=== PATIENT | male | born 1985 | race Caucasian/White ===

== ENCOUNTER 2019-12-23 06:46 | Outpatient (NON) | payer BC, SELFPAY ==
[2019-12-23 18:59] LABS: SARS-CoV-2 RNA PCR Negative
== END 2019-12-23 06:47 ==
PROVIDERS: PCP Internal Medicine; Visit Provider Internal Medicine
DX: Z20.828 Contact with and (suspected) exposure to other viral communicable diseases (principal); R68.89 Other general symptoms and signs
CPT/HCPCS: 87635; C9803; U0003

== ENCOUNTER 2024-03-09 08:58 | Emergency (ER) | payer BC, SELFPAY ==
[2024-03-09 09:26] VITALS: BP 145/95; PULSE 81; RESP 16; TEMP 36.6; O2SAT 100
--- NOTE | 2024-03-09 09:45 | ED.URI ---
HPI - URI/Sore Throat General Chief Complaint: Upper Respiratory Infection Stated Complaint: Sore Throat Time Seen by Provider: 03/09/24 09:46 Source: patient Mode of arrival: ambulatory Limitations: no limitations History of Present Illness HPI Narrative: Eduar is a 38-year-old male patient presenting to the clinic today with complaints of sore throat x5 days. He reports he has had low-grade fever. No nasal drainage or cough. Denies any known exposure to strep. Denies any chills or body aches. MD elicited complaint: sore throat Related Data Allergies Allergy/AdvReac Type Severity Reaction Status Date / Time No Known Allergies Allergy Verified 03/09/24 09:23 Review of Systems Review of Systems: Pertinent positives per HPI. Patient denies any fever, chills, rash, headache, visual changes, dizziness, cough, shortness of breath, chest pain, palpitations, nausea, vomiting, diarrhea, constipation, abdominal pain, or any urinary issues. PMFSH Family History Family History Sibling Patient's sister is in good health Mother Patient's mother is in good health Father Diabetes mellitus Heart disease Kidney disease Social History Social History Smoking status: Never smoker Second hand tobacco smoke exposure: No Alcohol intake: former Substance use: never Substance use type: does not use Lack of Transportation: No Lack of Food: Never True Current Housing: I Have Housing Concerned About Future Housing: No Difficulty Paying Gas/Electric Bills: No Difficulty Paying for Meds: No Currently Unemployed: No Education: Master's Degree or Higher Difficulty w/ Childcare or Family Care: No Comments At the time of my signature, I reviewed and agree with the nursing past medical, surgical, social, and family history. There is no relevant family history pertinent to the patient complaint. Exam Narrative: General: Well-developed, well nourished, in no apparent distress Head: Normocephalic, atraumatic Eyes: Pupils equally round and reactive to light bilaterally, EOM intact, sclera and conjunctive clear, no discharge, lids normal Ears: TMs intact and clear, ear canals clear, no drainage, grossly hearing normal. Nose: Nares patent, no discharge, no inflammation, no sinus tenderness. Mouth: Oral pharynx red without lesions or masses, good dentition, MMM. Neck: Supple, trachea midline, no enlargement of anterior or posterior cervical nodes, no thyroid masses or goiter palpable. Cardio: Regular rate and rhythm, s1 and s2 normal, no murmur appreciated. Resp: Clear to auscultation bilaterally, no rhonchi, rales, wheezing or rubs Course Course Emergency Course: Portions of this record may have been created with voice recognition software. Level of Care: Express Care Visit Vital Signs Vital signs: Vital Signs Temperature 36.6 C 03/09/24 09:26 Pulse Rate 81 03/09/24 09:26 Respiratory Rate 16 03/09/24 09:26 Blood Pressure 145/95 H 03/09/24 09:26 Pulse Oximetry 100 03/09/24 09:26 Temperature 36.6 C 03/09/24 09:26 Pulse Rate 81 03/09/24 09:26 Respiratory Rate 16 03/09/24 09:26 Blood Pressure 145/95 H 03/09/24 09:26 Pulse Oximetry 100 03/09/24 09:26 Vital signs reviewed MDM - URI/Sore Throat MDM Narrative Medical decision making narrative: At the time of visit patient is resting comfortably on the exam table. Patient appears to be nontoxic. Labs: Strep test was performed and negative in the clinic today. We will send strep for culture. Plan: I suspect patient has viral pharyngitis. Supportive measures were discussed with the patient and they voiced understanding discharge instructions and agrees to treatment plan. Return precautions reviewed Differential Diagnosis Differential diagnosis: Likely upper respiratory infection, otitis media, sinusitis, viral infection, bronchitis, influenza, pharyngitis and other (COVID) Discharge Plan Discharge Clinical Impression: Pharyngitis Qualifiers: Pharyngitis/tonsillitis etiology: unspecified etiology Qualified Code(s): J02.9 - Acute pharyngitis, unspecified Patient Disposition: Home, Self-Care Condition: Stable Instructions: Antibiotic Form, Pharyngitis (ED) Additional Instructions: Strep test was negative in the clinic today. We will send strep for culture if this comes back positive we will contact you in place you on antibiotics at that time. Increase fluids and stay well hydrated Tylenol/motrin for pain/fever Flonase and OTC antihistamines as directed Vicks vapor rub to open sinuses Sinus rinses for congestion Cepacol spray, cough drops, throat lozenges, warm tea with honey/lemon, gargle salt water to soothe throat BRAT diet for diarrhea Clear liquids x 24 hours then advance as tolerated for nausea/vomiting Go to the ED if you develop a worsening in your condition- high fever not controlled by Tylenol or Motrin, dehydration, weakness, lethargy, shortness of breath, or chest pain. Follow up with your PCP in 3-5 days if symptoms persist. Patient Language: Turkish Prescriptions: No Action levothyroxine 200 mcg tablet 200 mcg PO DAILY Qty: 90 1RF Follow-up/Referrals: Yobany Hyman MD [Primary Care Provider] - Time of Disposition: 09:46 Quality NIHSS Nursing Documentation ED NIHSS nursing documentation: reviewed/agree
[2024-03-09 09:55] LABS: EDSTREPNEGPOS1 Negative (Negative)
== END 2024-03-09 09:55 | disposition home or self-care (01) ==
PROVIDERS: Emergency Provider Nurse Practitioner Family; PCP Family Medicine
DX: J02.9 Acute pharyngitis, unspecified (principal)
CPT/HCPCS: 87081; 87880; 99213; G0463

== ENCOUNTER 2024-09-05 16:20 | Emergency (ER) | payer BC, SELFPAY ==
--- NOTE | ~2024-09-05 | XR_ITS ---
CORRECTED REPORT corrected visit [place] to [id number] [place] [id number] [facility] [place] This report was recreated on 09/19/2024. Original report was CHEST RADIOGRAPH, PA AND LATERAL CLINICAL HISTORY: left arm pain . COMPARISON: 03/18/2011 TECHNIQUE: PA and lateral views of the chest. FINDINGS The cardiomediastinal silhouette is unremarkable. The lungs are clear. Visualized osseous structures and soft tissues are unremarkable. IMPRESSION: No focal infiltrate or effusion. Reviewed, dictated and finalized at location A.
[2024-09-05 16:32] VITALS: BP 189/83; PULSE 76; RESP 18; TEMP 36.6; O2SAT 99
--- NOTE | 2024-09-05 16:57 | ECG_ITS ---
Measurements Intervals [place] Rate: 49 P: 66 W[place]: 183 QRS: 56 QRSD: 92 T: 46 QT: 400 QTc: 363 Interpretive Statements SINUS BRADYCARDIA ST ELEVATION IN DIFFUSE LEADS, PROBABLY EARLY REPOLARIZATION ABNORMAL ECG No previous ECG available for comparison Dictated By: Gage Cross DO 09/05/241921 Electronically Signed On 09-05-2024 19:22:52 CDT by Gage Cross D.O.
[2024-09-05 17:13] LABS: Basophils Absolute Auto 0.1 K/mm3 (0.0-0.1); Basophils Percent Auto 0.9 % (0.2-1.2); Eosinophils Absolute Auto 0.3 K/mm3 (0-0.3); Eosinophils Percent Auto 4.3 % (0-4.4); Hematocrit 42.3 % (42.0-52.0); Hemoglobin 14.4 g/dL (14.0-18.0); Immature Granulocyte Absolute 0.01 K/mm3 (0.00-0.031); Immature Granulocyte Percent A 0.2 % (0-0.5); Lymphocytes Absolute Auto 2.29 K/mm3 (0.9-3.2); Lymphocytes Percent Auto 39.1 % (18.3-44.2); Mean Corpuscular Hemoglobin 31.1 pg (26-34); Mean Corpuscular Volume 91.4 fl (80-100); Mean Platelet Volume 10.2 fl (7.4-10.4); Monocytes Absolute Auto 0.5 K/mm3 (0.1-0.6); Monocytes Percent Auto 8.7 % (2.6-8.5); Neutrophils Absolute Auto 2.8 K/mm3 (1.3-6.7); Neutrophils Percent Auto 46.8 % (45.5-73.1); Platelet Count Result 222 k/mm3 (150-375); Red Blood Count 4.63 M/mm3 (4.6-6.20); Red Cell Distribution Width 11.9 % (11.5-14.5); White Blood Count 5.9 K/mm3 (4.5-10.0)
[2024-09-05] MEDS: ASPIRIN 81 MG CHEWABLE TABLET 324 MG PO (17:16)
[2024-09-05 17:28] LABS: Alanine Aminotransferase 28 U/L (6-50); Albumin Level 4.4 g/dL (3.5-5.1); Alkaline Phosphatase 33 U/L (38-126); Anion Gap 9 mmol/L (4-12); Aspartate Amino Transferase 40 U/L (17-59); Bilirubin,Total 0.7 mg/dL (0.2-1.3); Blood Urea Nitrogen 18 mg/dL (9-20); Calcium 9.6 mg/dL (8.4-10.2); Carbon Dioxide 28 mmol/L (22-30); Chloride 102 mmol/L (98-107); Estimated CRCL calculation 90 ml/min; Estimated Glomerular Filt Rate > 60; Glucose 122 mg/dL (65-110); Lipase 69 U/L (23-300); Potassium 3.8 mmol/L (3.4-5.0); Sodium 139 mmol/L (137-145); Total Protein 6.9 g/dL (6.3-8.2)
[2024-09-05 17:31] LABS: INR 1.1; Partial Thromboplastin Time 23.5 Seconds (22.3-36.8); Prothrombin Time 13.7 Seconds (11.1-14.7)
[2024-09-05 17:39] LABS: Troponin I < 0.012 ng/mL (0.000-0.034)
--- NOTE | 2024-09-05 18:35 | ED_ITS ---
HPI - General Adult General Chief complaint: Extremity Injury, Upper Stated complaint: left arm pain Time Seen by Provider: 09/05/24 16:59 Source: patient Mode of arrival: ambulatory History of Present Illness HPI narrative: 38-year-old with a history of hypothyroidism here with a complains of left arm pain from med arm all the way to the forearm since he woke up from sleep. He denies any trauma or lifting any heavy objects. He states the pain is constant and nagging in nature. Denies any neck pain. No previous history of CAD. Onset (ago): day(s) (1) Location: upper extremity (Left) Radiation: non-radiation Severity: moderate Quality: aching Pain Consistency: constant Relieving factors: none Exacerbating factors: none Associated symptoms: denies other symptoms Treatments prior to arrival: none Related Data Allergies Allergy/AdvReac Type Severity Reaction Status Date / Time No Known Allergies Allergy Verified 09/05/24 16:56 Review of Systems 2 Review of Systems: All systems reviewed & are unremarkable except as noted in HPI and below Constitutional: Constitutional: Reports no additional constitutional complaints Eyes: Eyes: Reports no additional eye complaints ENT: Reports system reviewed and no additional complaints, except as documented Cardiovascular: Cardiovascular: Reports no additional cardiovascular complaints Respiratory: Respiratory: Reports no additional respiratory complaints Gastrointestinal: Gastrointestinal: Reports no additional gastrointestinal complaints Musculoskeletal: Musculoskeletal: Reports as per HPI Integumentary/Breasts: Skin/Breast: Reports system reviewed and no additional complaints, except as docu PMFSH Family History Family History Sibling Patient's sister is in good health Mother Patient's mother is in good health Father Diabetes mellitus Heart disease Kidney disease Social History Social History Smoking status: Never smoker Second hand tobacco smoke exposure: No Alcohol intake: former Substance use: never Substance use type: does not use Lack of Transportation: No Lack of Food: Never True Current Housing: I Have Housing Concerned About Future Housing: No Difficulty Paying Gas/Electric Bills: No Difficulty Paying for Meds: No Currently Unemployed: No Education: Master's Degree or Higher Difficulty w/ Childcare or Family Care: No Exam 2 Narrative: GENERAL: Well-appearing, well-nourished, and in no acute distress. HEAD: Normocephalic, atraumatic. EYES: PERRLA and EOMI. ENT: Nares clear NECK: Supple. CHEST: Clear to auscultation. No respiratory distress. HEART: Regular rate and rhythm. No murmur heard. Normal peripheral pulses. EXTREMITIES: Normal range of motion. No edema. Examination of the left upper extremity shows no edema no redness good radial pulse normal range of motion, no rash. SKIN: Warm, dry, no rash. NEURO: No focal deficits. Alert and oriented x3. PSYCH: Normal mood and affect. Course Course Emergency Course: Pain improved with aspirin. I did inform him about his lab work, EKG and chest x-ray findings. Most likely cause of his pain is MSK. Recommended him to take medication as prescribed, follow with his primary doctor. Vital Signs Vital signs: Vital Signs Temperature 36.6 C 09/05/24 16:32 Pulse Rate 76 09/05/24 16:32 Respiratory Rate 18 09/05/24 16:32 Blood Pressure 189/83 H 09/05/24 16:32 Pulse Oximetry 99 09/05/24 16:32 Oxygen Delivery Room Air 09/05/24 16:32 Temperature 36.6 C 09/05/24 16:32 Pulse Rate 76 09/05/24 16:32 Respiratory Rate 18 09/05/24 16:32 Blood Pressure 189/83 H 09/05/24 16:32 Pulse Oximetry 99 09/05/24 16:32 Oxygen Delivery Room Air 09/05/24 16:32 Medical Decision Making Differential Diagnosis Differential Diagnosis: Radicular pain, ACS , MSK pain Medical Records Medical records reviewed: Yes I reviewed the external patient's medical records. Vital Signs Vital Signs: Vital Signs Temperature 36.6 C 09/05/24 16:32 Pulse Rate 76 09/05/24 16:32 Respiratory Rate 18 09/05/24 16:32 Blood Pressure 189/83 H 09/05/24 16:32 Pulse Oximetry 99 09/05/24 16:32 Oxygen Delivery Room Air 09/05/24 16:32 Temperature 36.6 C 09/05/24 16:32 Pulse Rate 76 09/05/24 16:32 Respiratory Rate 18 09/05/24 16:32 Blood Pressure 189/83 H 09/05/24 16:32 Pulse Oximetry 99 09/05/24 16:32 Oxygen Delivery Room Air 09/05/24 16:32 Lab Data Lab results reviewed: Yes I reviewed the patient's lab results. 09/05/24 17:05 09/05/24 17:05 Labs: Lab Results 09/05/24 Range/Units 17:05 WBC 5.9 (4.5-10.0) K/mm3 RBC 4.63 (4.6-6.20) M/mm3 Hgb 14.4 (14.0-18.0) g/dL Hct 42.3 (42.0-52.0) % MCV 91.4 (80-100) fl MCH 31.1 (26-34) pg MCHC 34.0 (32-36) g/dl RDW 11.9 (11.5-14.5) % Plt Count 222 (150-375) k/mm3 MPV 10.2 (7.4-10.4) fl Immature Gran % (Auto) 0.2 (0-0.5) % Neut % (Auto) 46.8 (45.5-73.1) % Lymph % (Auto) 39.1 (18.3-44.2) % [place] % (Auto) 8.7 H (2.6-8.5) % Eos % (Auto) 4.3 (0-4.4) % Baso % (Auto) 0.9 (0.2-1.2) % Lymph # (Auto) 2.29 (0.9-3.2) K/mm3 [place] # (Auto) 0.5 (0.1-0.6) K/mm3 Eos # (Auto) 0.3 (0-0.3) K/mm3 Baso # (Auto) 0.1 (0.0-0.1) K/mm3 Abs Immat Gran (auto) 0.01 (0.00-0.031) K/mm3 Absolute Neuts (auto) 2.8 (1.3-6.7) K/mm3 Absolute Nucleated RBC 0.000 (0.0-0.012) K/mm3 Nucleated RBC % 0.0 (0.0-0.2) % PT 13.7 (11.1-14.7) Seconds INR 1.1 APTT 23.5 (22.3-36.8) Seconds Sodium 139 (137-145) mmol/L Potassium 3.8 (3.4-5.0) mmol/L Chloride 102 (98-107) mmol/L Carbon Dioxide 28 (22-30) mmol/L Anion Gap 9 (4-12) mmol/L BUN 18 (9-20) mg/dL Creatinine 1.15 (0.7-1.3) mg/dL Estim Creat Clear Calc 90 ml/min Estimated GFR > 60 (59 - ) Glucose 122 H (65-110) mg/dL Calcium 9.6 (8.4-10.2) mg/dL Total Bilirubin 0.7 (0.2-1.3) mg/dL AST 40 (17-59) U/L ALT 28 (6-50) U/L Alkaline Phosphatase 33 L (38-126) U/L Troponin I < 0.012 (0.000-0.034) ng/mL Total Protein 6.9 (6.3-8.2) g/dL Albumin 4.4 (3.5-5.1) g/dL Lipase 69 (23-300) U/L Imaging Data Radiologist's impression: ITS Impressions Chest X-Ray 09/05/24 17:16 IMPRESSION: No focal infiltrate or effusion. ECG Data EKG #1: ECG completion date: 09/05/24 ECG completion time: 17:06 EKG Interpretation: bradycardia (49), no ectopy, other (Early repolarization) and no acute changes Discharge Plan Discharge Clinical Impression: Arm pain, left Patient Disposition: Home Condition: Stable Instructions: Arm Pain (ED) Additional Instructions: Continue home medication take pain medication as prescribed, follow-up with your doctor in the next couple days. Patient Language: Albanian Prescriptions: New naproxen sodium [Anaprox DS] 550 mg tablet 550 mg PO Q12H PRN (Reason: pain) Qty: 14 0RF No Action levothyroxine 200 mcg tablet 200 mcg PO DAILY Qty: 90 1RF Follow-up/Referrals: Pooja Gu APRN [Advanced Practice Nurse] - Time of Disposition: 18:43
[2024-09-05 18:44] VITALS: BP 130/81; PULSE 46; RESP 12; O2SAT 98
[2024-09-05 19:22] VITALS: BP 127/77; PULSE 49; RESP 13; O2SAT 99
== END 2024-09-05 19:22 | disposition home or self-care (01) ==
PROVIDERS: Emergency Provider Family Medicine; PCP Family Medicine
DX: M79.602 Pain in left arm (principal); E03.9 Hypothyroidism, unspecified; Z79.899 Other long term (current) drug therapy; R00.1 Bradycardia, unspecified
CPT/HCPCS: 36415; 71046; 80053; 83690; 84484; 85025; 85610; 85730; 93005; 99284; A9270